=== PATIENT | female | born 1995 | race American Indian/Alaskan Native ===

== ENCOUNTER 2022-04-25 11:45 | Inpatient (IN) | payer MEDICAID ==
[2022-04-25 12:59] LABS: Basophils # (Auto) 0.1 K/mm3 (0.0-0.1); Basophils % (Auto) 0.5 % (0.0-1.8); Hematocrit 51.5 % (30.3-42.9); Hemoglobin 16.5 gm/dl (10.1-14.3); Lymphocytes # (Auto) 1.2 K/mm3 (1.2-5.4); Lymphocytes % (Auto) 12.5 % (13.4-35.0); Mean Corpuscular HGB Conc 32 % (30-34); Mean Corpuscular Volume 85 fl (79-97); Monocytes # (Auto) 0.4 K/mm3 (0.0-0.8); Monocytes % (Auto) 4.1 % (0.0-7.3); Platelet Count 511 K/mm3 (140-440); Red Blood Count 6.04 M/mm3 (3.65-5.03); Red Cell Distribution Width 14.5 % (13.2-15.2)
[2022-04-25 13:14] LABS: Bacteria,Urine 1+ /HPF (Negative); Bilirubin,Urine NEG (Negative); Blood,Urine NEG (Negative); Color,Urine Yellow (Yellow); Mucus,Urine 2+ /HPF; Urobilinogen,Urine < 2.0 mg/dL (<2.0)
[2022-04-25 13:16] LABS: Alanine Aminotransferase 14 units/L (7-56); Albumin 5.6 g/dL (3.9-5); BUN/Creatinine Ratio 20; Blood Urea Nitrogen 22 mg/dL (7-17); Calcium 11.1 mg/dL (8.4-10.2); Hemolysis Index 69
[2022-04-25] MEDS ORDERED: INSULIN REGULAR, HUMAN 100 UNITS in SODIUM CHLORIDE 0.9% 99 ML IV SCH ×2 (14:00→17:00)
[2022-04-25] MEDS ORDERED: SODIUM CHLORIDE 0.9% 1000 ML 1,000 ML IV ONE (14:04)
--- NOTE | 2022-04-25 14:28 | Emergency Department Report ---
ED General Adult HPI - General Chief complaint: Weakness Stated complaint: DIABETES/VOMITING/CONSTIPATION Time Seen by Provider: 04/25/22 13:56 Source: patient Mode of arrival: Ambulatory Limitations: No Limitations - History of Present Illness Initial comments: Patient is 26 years old female with history of type 1 diabetes. Patient presented to the ER complaining of generalized weakness. patient stated that she is compliant with her insulin. Patient also complaining of nausea and vomiting. She denied any cough or shortness of breath. Severity scale (0 -10): 8 - Related Data Allergies Allergy/AdvReac Type Severity Reaction Status Date / Time amoxicillin Allergy Unknown Verified 04/25/22 11:53 ED Review of Systems ROS: Stated complaint: DIABETES/VOMITING/CONSTIPATION Other details as noted in HPI Comment: All other systems reviewed and negative Constitutional: denies: chills, fever Respiratory: denies: cough, shortness of breath, SOB with exertion, SOB at rest, wheezing Cardiovascular: palpitations. denies: chest pain Gastrointestinal: nausea, vomiting. denies: abdominal pain, diarrhea, consti pation, hematemesis, melena Musculoskeletal: denies: back pain Neurological: weakness. denies: headache, numbness, paresthesias, confusion ED Past Medical Hx - Past Medical History Previous Medical History?: Yes Hx Diabetes: Yes - Surgical History Past Surgical History?: No ED Physical Exam - General Limitations: No Limitations General appearance: alert, in no apparent distress - Head Head exam: Present: atraumatic, normocephalic, normal inspection - ENT ENT exam: Present: mucous membranes dry - Neck Neck exam: Present: normal inspection, full ROM. Absent: tenderness, meningismus - Respiratory Respiratory exam: Present: normal lung sounds bilaterally - Cardiovascular Cardiovascular Exam: Present: tachycardia - GI/Abdominal GI/Abdominal exam: Present: soft, normal bowel sounds. Absent: distended, tenderness, guarding, rebound, rigid, organomegaly, mass, bruit, pulsatile mass, hernia - Extremities Exam Extremities exam: Present: normal inspection, full ROM, normal capillary refill. Absent: tenderness, pedal edema, joint swelling, calf tenderness - Back Exam Back exam: Present: normal inspection, full ROM. Absent: CVA tenderness (R), CVA tenderness (L) - Neurological Exam Neurological exam: Present: alert, oriented X3, CN II-XII intact, normal gait, reflexes normal. Absent: motor sensory deficit - Psychiatric Psychiatric exam: Present: normal mood - Skin Skin exam: Present: warm, dry, intact, normal color ED Course Vital Signs 04/25/22 11:54 Temperature 97.8 F Pulse Rate 138 H Respiratory 20 Rate Blood Pressure 126/87 [Right] O2 Sat by Pulse 99 Oximetry ED Medical Decision Making - Lab Data Result diagrams: 04/25/22 12:18 04/25/22 12:18 - Medical Decision Making Patient is 26 years old female with history of type 1 diabetes. Patient presented to the ER complaining of generalized weakness. patient stated that she is compliant with her insulin. Patient also complaining of nausea and v omiting. She denied any cough or shortness of breath. Patient found to have a blood glucose of 526 and anion gap of 36. Patient is in DKA. Patient started on insulin drip and receiving normal saline. I discussed the patient with Dr. Wells, he agreed to admit the patient to medical service for further management. Critical Care Time: Yes Critical care time in (mins) excluding proc time.: 35 Critical care attestation.: If time is entered above; I have spent that time in minutes in the direct care of this critically ill patient, excluding procedure time. ED Disposition Clinical Impression: DKA (diabetic ketoacidosis) Disposition: ADMITTED INPATIENT Is pt being admited?: Yes Condition: Stable Instructions: Diabetic Ketoacidosis (ED)
[2022-04-25 15:36] LABS: BUN/Creatinine Ratio 26; Blood Urea Nitrogen 23 mg/dL (7-17); Calcium 10.3 mg/dL (8.4-10.2); Hemolysis Index 1
--- NOTE | 2022-04-25 15:50 | XRay Report ---
CHEST 1 VIEW INDICATION: chest pain. COMPARISON: None FINDINGS: SUPPORT DEVICES: None. HEART: Within normal limits. LUNGS/PLEURA: No acute air space or interstitial disease. ADDITIONAL FINDINGS: None. IMPRESSION: 1. No acute findings. Signer Name: Deonte Villareal MD Signed: 04/25/2022 3:45 PM Workstation Name: [id number]
[2022-04-25] MEDS ORDERED: ACETAMINOPHEN 325 MG TAB PO PRN (16:12)
[2022-04-25] MEDS ORDERED: ONDANSETRON 4 MG/2 ML INJ IV PRN (16:12)
[2022-04-25] MEDS ORDERED: METOCLOPRAMIDE 10 MG/2 ML INJ IV PRN (16:12)
[2022-04-25] MEDS ORDERED: MORPHINE 2 MG/1 ML INJ IV PRN (16:12)
[2022-04-25] MEDS: D5W/0.45% NACL/KCL 20 MEQ 20 MEQ/1,000 ML BAG IV SCH ×2 (16:33→22:59)
[2022-04-25] MEDS ORDERED: DEXTROSE 50% IN WATER (25GM) 50 ML SYRINGE IV ONE (17:09)
[2022-04-25 18:04] LABS: BUN/Creatinine Ratio 25; Blood Urea Nitrogen 20 mg/dL (7-17); Calcium 9.6 mg/dL (8.4-10.2); Hemolysis Index 8
[2022-04-25 22:14] LABS: Blood Urea Nitrogen 17 mg/dL (7-17); Hemolysis Index 79
[2022-04-25 22:22] LABS: BUN/Creatinine Ratio 34
[2022-04-25] MEDS: POTASSIUM CHLORIDE 10 MEQ 10 MEQ/100 ML BAG IV SCH ×2 (22:47→22:48)
[2022-04-25] MEDS: INSULIN LISPRO 100 UNIT/ML SUB-Q SCH (22:59)
[2022-04-25] MEDS: FAMOTIDINE 20 MG/2 ML INJ IV SCH (22:59)
[2022-04-25 23:34] LABS: Blood Urea Nitrogen 16 mg/dL (7-17); Calcium 9.1 mg/dL (8.4-10.2); Hemolysis Index 5
[2022-04-25 23:35] LABS: BUN/Creatinine Ratio 27
[2022-04-26] MEDS: INSULIN LISPRO 100 UNIT/ML SUB-Q SCH ×4 (00:36→22:50)
[2022-04-26] MEDS: D5W/0.45% NACL/KCL 20 MEQ 20 MEQ/1,000 ML BAG IV SCH (06:44)
--- NOTE | 2022-04-26 07:28 | History and Physical Report ---
History of Present Illness Date of examination: 04/25/22 Date of admission: 04/25/22 16:13 Chief complaint: Nausea and vomiting for 1 day History of present illness: Patient is 26 years old female with history of type 1 diabetes. Patient presented to the ER complaining of generalized weakness. patient stated that she is compliant with her insulin. Patient also complaining of nausea and vomiting. She denied any cough or shortness of breath. Severity scale (0 -10): 8 - Past Medical History Previous Medical History?: Yes --Diabetes: Yes - Surgical History --Past Surgical History?: No Review of Systems ROS: Stated complaint: DIABETES/VOMITING/CONSTIPATION Other details as noted in HPI Comment: All other systems reviewed and negative Constitutional: denies: chills, fever Respiratory: denies: cough, shortness of breath, SOB with exertion, SOB at rest, wheezing Cardiovascular: palpitations. denies: chest pain Gastrointestinal: nausea, vomiting. denies: abdominal pain, diarrhea, constipation, hematemesis, melena Musculoskeletal: denies: back pain Neurological: weakness. denies: headache, numbness, paresthesias, confusion Medications and Allergies Allergies Allergy/AdvReac Type Severity Reaction Status Date / Time amoxicillin Allergy Unknown Verified 04/25/22 11:53 Active Meds: Active Medications Acetaminophen (Acetaminophen 325 Mg Tab) 650 mg PO Q4H PRN PRN Reason: Pain MILD(1-3)/Fever >100.5/CAMACHO Last Admin: 04/25/22 23:10 Dose: 650 mg Famotidine (Famotidine 20 Mg/2 Ml Inj) 20 mg IV BID ROSALVA Last Admin: 04/25/22 22:59 Dose: 20 mg Potassium Chloride/Dextrose/Sod Cl (D5w/0.45% Nacl/Kcl 20 Meq) 20 meq in 1,000 mls @ 150 mls/hr IV DIRECT ROSALVA Last Admin: 04/26/22 06:44 Dose: 150 mls/hr Insulin Human Lispro (Insulin Lispro 100 Unit/Ml) 0 unit SUB-Q Q3H ROSALVA; Protocol Last Admin: 04/26/22 00:36 Dose: 6 unit Metoclopramide HCl (Metoclopramide 10 Mg/2 Ml Inj) 10 mg IV Q6H PRN PRN Reason: Nausea And Vomiting Morphine Sulfate (Morphine 2 Mg/1 Ml Inj) 2 mg IV Q4H PRN PRN Reason: Pain, Moderate (4-6) Ondansetron HCl (Ondansetron 4 Mg/2 Ml Inj) 4 mg IV Q8H PRN PRN Reason: Nausea And Vomiting Sodium Chloride (Sodium Chloride 0.9% 10 Ml Flush Syringe) 10 ml IV BID ROSALVA Last Admin: 04/25/22 23:00 Dose: 10 ml Sodium Chloride (Sodium Chloride 0.9% 10 Ml Flush Syringe) 10 ml IV PRN PRN PRN Reason: LINE FLUSH Exam - Constitutional Vitals: Temp Pulse Resp BP Pulse Ox 99.8 F H 94 H 16 129/94 96 04/26/22 03:25 04/26/22 04:34 04/26/22 04:34 04/26/22 04:34 04/26/22 04:34 General appearance: Present: no acute distress, well-nourished - EENT Eyes: Present: PERRL ENT: hearing intact, clear oral mucosa - Neck Neck: Present: supple, normal ROM - Respiratory Respiratory effort: normal Respiratory: bilateral: CTA - Cardiovascular Heart rate: 78 Rhythm: regular Heart Sounds: Present: S1 & S2. Absent: rub, click - Extremities Extremities: pulses symmetrical, No edema Peripheral Pulses: within normal limits - Abdominal General gastrointestinal: Present: soft, non-tender, non-distended, normal bowel sounds Female genitourinary: Present: normal - Integumentary Integumentary: Present: clear, warm, dry - Musculoskeletal Musculoskeletal: gait normal, strength equal bilaterally - Psychiatric Psychiatric: appropriate mood/affect, intact judgment & insight - Neurologic Neurologic: CNII-XII intact, moves all extremities Results - Labs CBC & Chem 7: 04/25/22 12:18 04/25/22 22:32 Labs: Laboratory Last Values WBC 9.5 K/mm3 (4.5-11.0) 04/25/22 12:18 RBC 6.04 M/mm3 (3.65-5.03) H 04/25/22 12:18 Hgb 16.5 gm/dl (10.1-14.3) H 04/25/22 12:18 Hct 51.5 % (30.3-42.9) H 04/25/22 12:18 MCV 85 fl (79-97) 04/25/22 12:18 MCH 27 pg (28-32) L 04/25/22 12:18 MCHC 32 % (30-34) 04/25/22 12:18 RDW 14.5 % (13.2-15.2) 04/25/22 12:18 Plt Count 511 K/mm3 (140-440) H 04/25/22 12:18 Lymph % (Auto) 12.5 % (13.4-35.0) L 04/25/22 12:18 [place] % (Auto) 4.1 % (0.0-7.3) 04/25/22 12:18 Eos % (Auto) 0.0 % (0.0-4.3) 04/25/22 12:18 Baso % (Auto) 0.5 % (0.0-1.8) 04/25/22 12:18 Lymph # (Auto) 1.2 K/mm3 (1.2-5.4) 04/25/22 12:18 [place] # (Auto) 0.4 K/mm3 (0.0-0.8) 04/25/22 12:18 Eos # (Auto) 0.0 K/mm3 (0.0-0.4) 04/25/22 12:18 Baso # (Auto) 0.1 K/mm3 (0.0-0.1) 04/25/22 12:18 Seg Neutrophils % 82.9 % (40.0-70.0) H 04/25/22 12:18 Seg Neutrophils # 7.9 K/mm3 (1.8-7.7) H 04/25/22 12:18 Sodium 128 mmol/L (137-145) L 04/25/22 22:32 Potassium 3.5 mmol/L (3.6-5.0) L 04/25/22 22:32 Chloride 81.5 mmol/L (98-107) L 04/25/22 22:32 Carbon Dioxide 25 mmol/L (22-30) 04/25/22 22:32 Anion Gap 25 mmol/L 04/25/22 22:32 BUN 16 mg/dL (7-17) 04/25/22 22:32 Creatinine 0.6 mg/dL (0.6-1.2) 04/25/22 22:32 Estimated GFR > 60 ml/min 04/25/22 22:32 BUN/Creatinine Ratio 27 % 04/25/22 22:32 Glucose 340 mg/dL (65-100) H 04/25/22 22:32 POC Glucose 100 mg/dL (70-105) 04/26/22 05:57 Calcium 9.1 mg/dL (8.4-10.2) 04/25/22 22:32 Phosphorus 3.90 mg/dL (2.5-4.5) 04/25/22 16:44 Magnesium 2.60 mg/dL (1.7-2.3) H 04/25/22 16:44 Total Bilirubin 0.60 mg/dL (0.1-1.2) 04/25/22 12:18 AST 20 units/L (5-40) 04/25/22 12:18 ALT 14 units/L (7-56) 04/25/22 12:18 Alkaline Phosphatase 148 units/L (35-129) H 04/25/22 12:18 Total Protein 9.8 g/dL (6.3-8.2) H 04/25/22 12:18 Albumin 5.6 g/dL (3.9-5) H 04/25/22 12:18 Albumin/Globulin Ratio 1.3 % 04/25/22 12:18 HCG, Qual Negative (Negative) 04/25/22 14:20 Urine Color Yellow (Yellow) 04/25/22 Unknown Urine Turbidity Slightly-cloudy (Clear) 04/25/22 Unknown Urine pH 5.0 (5.0-7.0) 04/25/22 Unknown Ur Specific [place] 1.025 (1.003-1.030) 04/25/22 Unknown Urine Protein 100 mg/dl mg/dL (Negative) 04/25/22 Unknown Urine Glucose (UA) >=500 mg/dL (Negative) 04/25/22 Unknown Urine Ketones 80 mg/dL (Negative) 04/25/22 Unknown Urine Blood Neg (Negative) 04/25/22 Unknown Urine Nitrite Neg (Negative) 04/25/22 Unknown Urine Bilirubin Neg (Negative) 04/25/22 Unknown Urine Urobilinogen < 2.0 mg/dL (<2.0) 04/25/22 Unknown Ur Leukocyte Esterase Neg (Negative) 04/25/22 Unknown Urine WBC (Auto) 24.0 /HPF (0.0-6.0) H 04/25/22 Unknown Urine RBC (Auto) 4.0 /HPF (0.0-6.0) 04/25/22 Unknown U Epithel Cells (Auto) 18.0 /HPF (0-13.0) H 04/25/22 Unknown Urine Bacteria (Auto) 1+ /HPF (Negative) 04/25/22 Unknown Urine Mucus 2+ /HPF 04/25/22 Unknown Short CBC 04/25/22 Range/Units 12:18 WBC 9.5 (4.5-11.0) K/mm3 Hgb 16.5 H (10.1-14.3) gm/dl Hct 51.5 H (30.3-42.9) % Plt Count 511 H (140-440) K/mm3 BMP 04/25/22 04/25/22 04/25/22 12:18 14:20 16:44 Sodium 132 L 132 L 135 L Potassium 5.0 3.0 L D 3.0 L Chloride 73.0 L 79.0 L 86.0 L Carbon Dioxide 28 31 H 30 BUN 22 H 23 H 20 H Creatinine 1.1 0.9 0.8 Glucose 527 H* 259 H 55 L Calcium 11.1 H 10.3 H 9.6 04/25/22 04/25/22 20:32 22:32 Sodium 127 L D 128 L Potassium 4.0 D 3.5 L Chloride 81.4 L 81.5 L Carbon Dioxide 21 L D 25 BUN 17 16 Creatinine 0.5 L 0.6 Glucose 280 H 340 H Calcium 9.0 9.1 Liver Function 04/25/22 Range/Units 12:18 Total Bilirubin 0.60 (0.1-1.2) mg/dL AST 20 (5-40) units/L ALT 14 (7-56) units/L Alkaline Phosphatase 148 H (35-129) units/L Albumin 5.6 H (3.9-5) g/dL Urine 04/25/22 Range/Units Unknown Urine Color Yellow (Yellow) Urine pH 5.0 (5.0-7.0) Ur Specific [place] 1.025 (1.003-1.030) Urine Protein 100 mg/dl (Negative) mg/dL Urine Glucose (UA) >=500 (Negative) mg/dL Chav[place]ria/IV: Voiding Method Toilet Assessment and Plan Assessment and plan: Critical care statement The high probability OF a clinically significant sudden or life-threatening deterioration of the cardiorespiratory system and endocrine system required my full and direct attention, intervention and postoperative management. The aggregate critical care time was 40 minutes. The time is in addition to time spent performing reported procedures but includes the followin: Data review and interpretation 2: Patient assessment and monitoring of vital signs 3: Documentation 4:: Medication orders and management Advance Directives: Yes (Full code) VTE prophylaxis?: Chemical Plan of care discussed with patient/family: Yes - Patient Problems (1) DKA (diabetic ketoacidosis) Current Visit: Yes Status: Acute Qualifiers: Diabetes mellitus type: type 1 Plan to address problem: DKA protocol was initiated Patient was initiated on IV insulin IV fluids Banquet Set Up Person consult (2) Dehydration Current Visit: Yes Status: Acute Plan to address problem: IV fluids for now (3) DVT prophylaxis Current Visit: Yes Status: Acute Plan to address problem: On anticoagulation GI prophylaxis (4) Advance care planning Current Visit: Yes Status: Acute Plan to address problem: Disease education conducted, care plan discussed, diagnosis discussed, prognosis discussed. Patient is full code. Patient acknowledges understanding and agreement with care plan. +30 minutes.
--- NOTE | 2022-04-26 07:30 | Event Note ---
Date: 04/25/22 Patient was downgraded from ICU to telemetry floor because her sugars were in the 60s and patient was doing well Patient was initiated on frequent Accu-Cheks and high-dose sliding scale protocol Patient also initiated on Lantus We will defer to primary team dosing to follow 7030 twice daily or long-acting insulin with short acting insulin before each meal
[2022-04-26] MEDS: FAMOTIDINE 20 MG/2 ML INJ IV SCH (09:49)
--- NOTE | 2022-04-26 11:55 | Progress Note ---
Assessment and Plan Assessment and plan: #DKA (diabetic ketoacidosis)-resolved #Type 1 diabetes with hyperglycemia -resolved prior to insulin drip -will start lantus 10U QHS -continue high scale SSI + accuchecks -continue IVFs #Dehydration improving -IV fluids for now #Abdominal pain #Abdominal distention -Chronic -Given patient history likely secondary to undiagnosed gastroparesis -Will schedule Reglan and see if improved -CT abdomen without contrast ordered -will need outpatient follow up with GI to rule out gastroparesis #Hypokalemia -We will replete monitor -Likely secondary to vomiting #Advanced care planning -Disease education conducted, care plan discussed, diagnosis discussed, prognosis discussed. Patient is full code. Patient acknowledges understanding and agreement with care plan. +30 minutes. History Interval history: No acute events overnight. Patient reports early satiety, nausea and vomiting for a while. She has not had a full meal since last Tuesday due to her symptoms. Currently she is symptom-free and eager to eat. She reports taking treciba at night and has noticed fluctuations in her blood sugars. She is visiting her sister from [place]. Hospitalist Physical - Physical exam Narrative exam: GENERAL:Thin young woman. In no acute distress. HEENT: Normocephalic. Atraumatic. NECK: Supple. CHEST/LUNGS: CTAB on room air HEART/CARDIOVASCULAR: RRR. No murmur, rubs or gallops appreciated. ABDOMEN: +BS. NT/ND. SKIN: No rashes noted. NEURO: No focal motor deficit. Follows all commands. MUSCULOSKELETAL: No joint effusion EXTREMITIES: No cyanosis, clubbing or edema. PSYCH: Cooperative. - Constitutional Vitals: Temp Pulse Resp BP Pulse Ox 98.0 F 92 H 16 129/83 98 04/26/22 07:58 04/26/22 07:58 04/26/22 07:58 04/26/22 07:58 04/26/22 07:58 General appearance: Present: no acute distress, well-nourished Results - Labs CBC & Chem 7: 04/25/22 12:18 04/27/22 04:03 Labs: Laboratory Last Values WBC 9.5 K/mm3 (4.5-11.0) 04/25/22 12:18 RBC 6.04 M/mm3 (3.65-5.03) H 04/25/22 12:18 Hgb 16.5 gm/dl (10.1-14.3) H 04/25/22 12:18 Hct 51.5 % (30.3-42.9) H 04/25/22 12:18 MCV 85 fl (79-97) 04/25/22 12:18 MCH 27 pg (28-32) L 04/25/22 12:18 MCHC 32 % (30-34) 04/25/22 12:18 RDW 14.5 % (13.2-15.2) 04/25/22 12:18 Plt Count 511 K/mm3 (140-440) H 04/25/22 12:18 Lymph % (Auto) 12.5 % (13.4-35.0) L 04/25/22 12:18 [place] % (Auto) 4.1 % (0.0-7.3) 04/25/22 12:18 Eos % (Auto) 0.0 % (0.0-4.3) 04/25/22 12:18 Baso % (Auto) 0.5 % (0.0-1.8) 04/25/22 12:18 Lymph # (Auto) 1.2 K/mm3 (1.2-5.4) 04/25/22 12:18 [place] # (Auto) 0.4 K/mm3 (0.0-0.8) 04/25/22 12:18 Eos # (Auto) 0.0 K/mm3 (0.0-0.4) 04/25/22 12:18 Baso # (Auto) 0.1 K/mm3 (0.0-0.1) 04/25/22 12:18 Seg Neutrophils % 82.9 % (40.0-70.0) H 04/25/22 12:18 Seg Neutrophils # 7.9 K/mm3 (1.8-7.7) H 04/25/22 12:18 Sodium 128 mmol/L (137-145) L 04/25/22 22:32 Potassium 3.5 mmol/L (3.6-5.0) L 04/25/22 22:32 Chloride 81.5 mmol/L (98-107) L 04/25/22 22:32 Carbon Dioxide 25 mmol/L (22-30) 04/25/22 22:32 Anion Gap 25 mmol/L 04/25/22 22:32 BUN 16 mg/dL (7-17) 04/25/22 22:32 Creatinine 0.6 mg/dL (0.6-1.2) 04/25/22 22:32 Estimated GFR > 60 ml/min 04/25/22 22:32 BUN/Creatinine Ratio 27 % 04/25/22 22:32 Glucose 340 mg/dL (65-100) H 04/25/22 22:32 POC Glucose 263 mg/dL (70-105) H 04/26/22 09:34 Calcium 9.1 mg/dL (8.4-10.2) 04/25/22 22:32 Phosphorus 3.90 mg/dL (2.5-4.5) 04/25/22 16:44 Magnesium 2.60 mg/dL (1.7-2.3) H 04/25/22 16:44 Total Bilirubin 0.60 mg/dL (0.1-1.2) 04/25/22 12:18 AST 20 units/L (5-40) 04/25/22 12:18 ALT 14 units/L (7-56) 04/25/22 12:18 Alkaline Phosphatase 148 units/L (35-129) H 04/25/22 12:18 Total Protein 9.8 g/dL (6.3-8.2) H 04/25/22 12:18 Albumin 5.6 g/dL (3.9-5) H 04/25/22 12:18 Albumin/Globulin Ratio 1.3 % 04/25/22 12:18 HCG, Qual Negative (Negative) 04/25/22 14:20 Urine Color Yellow (Yellow) 04/25/22 Unknown Urine Turbidity Slightly-cloudy (Clear) 04/25/22 Unknown Urine pH 5.0 (5.0-7.0) 04/25/22 Unknown Ur Specific [place] 1.025 (1.003-1.030) 04/25/22 Unknown Urine Protein 100 mg/dl mg/dL (Negative) 04/25/22 Unknown Urine Glucose (UA) >=500 mg/dL (Negative) 04/25/22 Unknown Urine Ketones 80 mg/dL (Negative) 04/25/22 Unknown Urine Blood Neg (Negative) 04/25/22 Unknown Urine Nitrite Neg (Negative) 04/25/22 Unknown Urine Bilirubin Neg (Negative) 04/25/22 Unknown Urine Urobilinogen < 2.0 mg/dL (<2.0) 04/25/22 Unknown Ur Leukocyte Esterase Neg (Negative) 04/25/22 Unknown Urine WBC (Auto) 24.0 /HPF (0.0-6.0) H 04/25/22 Unknown Urine RBC (Auto) 4.0 /HPF (0.0-6.0) 04/25/22 Unknown U Epithel Cells (Auto) 18.0 /HPF (0-13.0) H 04/25/22 Unknown Urine Bacteria (Auto) 1+ /HPF (Negative) 04/25/22 Unknown Urine Mucus 2+ /HPF 04/25/22 Unknown Chavarria/IV: Voiding Method Toilet Active Medications - Current Medications Current Medications: Generic Name Dose Route Start Last Admin Trade Name Freq PRN Reason Stop Dose Admin Acetaminophen 650 mg 04/25/22 16:12 04/25/22 23:10 Acetaminophen 325 Mg Tab PO 650 mg Q4H PRN Administration Pain MILD(1-3)/Fever >100.5/CAMACHO Famotidine 20 mg 04/25/22 22:00 04/26/22 09:49 Famotidine 20 Mg/2 Ml Inj IV 20 mg BID ROSALVA Administration Potassium Chloride/Dextrose/Sod Cl 20 meq in 1,000 mls @ 150 mls/hr 04/25/22 17:00 04/26/22 06:44 D5w/0.45% Nacl/Kcl 20 Meq IV 150 mls/hr DIRECT ROSALVA Administration Insulin Human Lispro 0 unit 04/25/22 21:00 04/26/22 09:53 Insulin Lispro 100 Unit/Ml SUB-Q 6 unit Q3H ROSALVA Administration Protocol Metoclopramide HCl 10 mg 04/25/22 16:12 Metoclopramide 10 Mg/2 Ml Inj IV Q6H PRN Nausea And Vomiting Metoclopramide HCl 5 mg 04/26/22 16:30 Metoclopramide 10 Mg/2 Ml Inj IV ACHS ROSALVA Morphine Sulfate 2 mg 04/25/22 16:12 Morphine 2 Mg/1 Ml Inj IV Q4H PRN Pain, Moderate (4-6) Ondansetron HCl 4 mg 04/25/22 16:12 Ondansetron 4 Mg/2 Ml Inj IV Q8H PRN Nausea And Vomiting Sodium Chloride 10 ml 04/25/22 22:00 04/25/22 23:00 Sodium Chloride 0.9% 10 Ml Flush Syringe IV 10 ml BID ROSALVA Administration Sodium Chloride 10 ml 04/25/22 16:12 Sodium Chloride 0.9% 10 Ml Flush Syringe IV PRN PRN LINE FLUSH Nutrition/Malnutrition Assess - Dietary Evaluation Nutrition/Malnutrition Findings: Nutrition Notes Start: 04/25/22 16:47 Freq: Status: Active Protocol: Document 04/25/22 16:47 MANDY (Rec: 04/25/22 16:54 MANDY [id number]) Nutrition Notes Need for Assessment generated from: MD Order,Education Initial or Follow up Brief Note Current Diagnosis Diabetes Other Pertinent Diagnosis DKA, Weakness, N/V. Current Diet NPO (since 04/25 16:15). Height 5 ft 3 in Weight 47.627 kg [place] Body Weight (kg) 52.27 BMI 18.6 Weight change and time frame None provided at admission. Weight Status Appropriate Subjective/Other Information RD consult for nutrition education assessment. Pt currently on NPO. Pt is on Room Air, O2 saturation @ 99%, according to Vital Signs notes. Pt still in critical condition , not a candidate for Nutrition Education at the time, will assess feasibility on F/U. Percent of energy/protein needs met: Pt currently on NPO. Nutrition Intervention Follow-Up By: 04/27/22 Additional Comments Nutrition education will be provided on F/U, if feasible. When pertinent, start monitoring food tolerance, %PO intake of meals, and BM.
[2022-04-26 12:13] LABS: Blood Urea Nitrogen 12 mg/dL (7-17); Calcium 8.8 mg/dL (8.4-10.2); Hemolysis Index 3
[2022-04-26 12:31] LABS: BUN/Creatinine Ratio 17
--- NOTE | 2022-04-26 17:39 | Cat Scan Report ---
CT ABDOMEN AND PELVIS WITHOUT CONTRAST HISTORY: abdominal pain/distention COMPARISON: None TECHNIQUE: Routine abdominal and pelvic CT exam performed without contrast. Lack of intravenous cont rast limits evaluation of the vascular and solid organs.. All CT scans at this location are performed using CT dose reduction for ALARA by means of automated exposure control. FINDINGS: CT ABDOMEN: Lung Bases: No significant abnormality. Liver: No significant abnormality. Biliary: No significant abnormality. Spleen: No significant abnormality. Unenlarged. Pancreas: No significant abnormality. Adrenals: No significant abnormality. Kidneys: No significant abnormality. Lymphatics: No lymphadenopathy. Vasculature: No significant abnormality. Bowel/Peritoneum: There is significant distention of the stomach. There is no free air. There is no b owel obstruction. There are no fluid collections. CT PELVIC: : No significant abnormality. Lymphatics: No lymphadenopathy. Osseous Structures: No aggressive appearing osseous lesions. Additional Findings: None IMPRESSION: 1. Significant distention of the stomach which may indicate gastric outlet obstruction. No bowel obst ruction. No free air or fluid collection. Signer Name: Delonte Murray MD Signed: 04/26/2022 5:35 PM Workstation Name: [id number]
[2022-04-26] MEDS ORDERED: INSULIN GLARGINE 100 UNITS/ML SUB-Q SCH ×2 (22:00)
[2022-04-26] MEDS: FAMOTIDINE 20 MG TAB PO SCH (22:51)
[2022-04-26] MEDS: METOCLOPRAMIDE 10 MG/2 ML INJ IV SCH (22:57)
[2022-04-27 05:22] LABS: Blood Urea Nitrogen 15 mg/dL (7-17); Hemolysis Index 1
[2022-04-27 05:24] LABS: BUN/Creatinine Ratio 30
[2022-04-27] MEDS: METOCLOPRAMIDE 10 MG/2 ML INJ IV SCH ×3 (06:47→10:43)
[2022-04-27] MEDS: INSULIN LISPRO 100 UNIT/ML SUB-Q SCH ×2 (07:34→07:35)
[2022-04-27] MEDS: FAMOTIDINE 20 MG/2 ML INJ IV SCH (07:35)
[2022-04-27 08:04] VITALS: BP 124/80
[2022-04-27] MEDS ORDERED: POTASSIUM CHLORIDE ER 20 MEQ TAB PO SCH (09:00)
--- NOTE | 2022-04-27 10:26 | Discharge Summary ---
Providers - Providers Date of Admission: 04/25/22 16:13 Date of discharge: 04/27/22 Attending physician: RITA DURAN MD 04/25/22 16:18 Consult to Dietitian/Nutrition [CONS] Routine Physician Instructions: Diet education Reason For Exam: DKA Reason for Consult: Nutrition Recommendations Reason for Consult: Diet education Primary care physician: SENIOR JAVA DEVELOPER Hospitalization Reason for admission: DKA Condition: Stable Hospital course: 26-year-old female history of type 1 diabetes who presented with nausea, vomiting and generalized weakness. Patient was found to be in diabetic ketoacidosis. Anion gap closed after being administered subcutaneous insulin. Her symptoms improved and she was able to tolerate food. CT of the abdomen pelvis showed distention of the stomach without bowel obstruction. Patient was discharged with instruction to follow-up with PCP and gastroenterology outpatient. Disposition: 01 HOME / SELF CARE / HOMELESS Final Discharge Diagnosis (Prints w/discharge instructions): Dehydration. Diabetic ketoacidosis. Type 1 diabetes with hyperglycemia. Abdominal pain. Abdominal distention. Hypokalemia Time spent for discharge: 30 minutes Core Measure Documentation - Palliative Care Palliative Care/ Comfort Measures: Not Applicable - Core Measures Any of the following diagnoses?: none Exam - Physical Exam Narrative exam: GENERAL:Thin young woman. In no acute distress. HEENT: Normocephalic. Atraumatic. NECK: Supple. CHEST/LUNGS: CTAB on room air HEART/CARDIOVASCULAR: RRR. No murmur, rubs or gallops appreciated. ABDOMEN: +BS. NT/ND. SKIN: No rashes noted. NEURO: No focal motor deficit. Follows all commands. MUSCULOSKELETAL: No joint effusion EXTREMITIES: No cyanosis, clubbing or edema. PSYCH: Cooperative. - Constitutional Vitals: Temp Pulse Resp BP Pulse Ox 98.4 F 88 20 124/80 98 04/27/22 07:21 04/27/22 07:21 04/27/22 04:15 04/27/22 07:21 04/27/22 08:15 Plan Care Plan Goals: Please make an appoint with your primary care provider for referral to gastroenterology for evaluation of your distended stomach. Continue to take medications as they are prescribed to you. Should your symptoms return please report to the nearest ED. Follow up with: TOBI MUNSON MD [Primary Care Provider] - 7 Days Prescriptions: Metoclopramide HCl [Metoclopramide HCl Odt] 5 mg PO TIDWM 14 Days #42 tab
[2022-04-27] MEDS: FAMOTIDINE 20 MG TAB PO SCH (10:43)
--- NOTE | 2022-04-29 11:41 | Electrocardiograph Report ---
[facility] Test Date: 2022-04-25 Test Time: 15:01:20 Pat Name: ERIC JAIMES Department: Room: A459 Gender: F Title Camera Operator: JEAN : 1995 Requested By: GABRIELLE STARR Order Number: [id number] Reading MD: Med Thomson Measurements Intervals [place] Rate: 121 P: 55 MI: 108 QRS: 66 QRSD: 67 T: -22 QT: 379 QTc: 538 Interpretive Statements Sinus tachycardia Prolonged QT interval No previous ECG available for comparison Electronically Signed On 04-29-2022 11:40:54 EDT by Med Thomson
== END 2022-04-27 12:05 | disposition home or self-care (01) | DRG 639 ==
LOC: ED 11:45 → CC1 16:13 → 4A 20:13
PROVIDERS: ADMIT Internal Medicine; ATTEND Student in an Organized Health Care Education/Training Program
DX: E10.10 Type 1 diabetes mellitus with ketoacidosis without coma (principal); E86.0 Dehydration; E87.6 Hypokalemia; R14.0 Abdominal distension (gaseous)
CPT/HCPCS: 36415; 71045; 74176; 80048; 80053; 81001; 82962; 83735; 84100; 84703; 85025; 87086; 93005; G0378; J3480; J3490; Q9967; J1815; J2765; J7030

== ENCOUNTER 2022-05-07 21:13 | Inpatient (IN) | payer SELFPAY ==
[2022-05-07] MEDS ORDERED: SODIUM CHLORIDE 0.9% 1000 ML 1,000 ML IV ONE ×3 (21:39→22:58)
--- NOTE | 2022-05-07 21:44 | Emergency Department Report ---
ED Altered Mental Status HPI - General Stated Complaint: DIABETIC ISSUES Time Seen by Provider: 05/07/22 21:39 Source: EMS Mode of arrival: Stretcher Limitations: Altered Mental Status - History of Present Illness Initial Comments: Patient is a 26-year-old female brought in by EMS for altered mental status. She has history of insulin-dependent diabetes. She is visiting from out of town for a wedding and has been here for approximately 1 week. She apparently became altered at someone's house and EMS was called. Fingerstick read critical high. Greater than 600 during triage. - Related Data Home Medications Medication Instructions Recorded Confirmed Last Taken Dicyclomine [Bentyl] 10 mg PO QID 04/27/22 04/27/22 Unknown Insulin Degludec [Tresiba 200 unit SQ QDAY 04/27/22 04/27/22 Unknown Flextouch U-200] Previous Rx's Medication Instructions Recorded Last Taken Type Metoclopramide HCl [Metoclopramide 5 mg PO TIDWM 14 Days #42 tab 04/27/22 Unknown Rx HCl Odt] Allergies Allergy/AdvReac Type Severity Reaction Status Date / Time amoxicillin Allergy Unknown Verified 04/25/22 11:53 ED Review of Systems ROS: Stated complaint: DIABETIC ISSUES Other details as noted in HPI Comment: Unobtainable due to pts medical conditions ED Past Medical Hx - Past Medical History Hx Congestive Heart Failure: No Hx Diabetes: Yes Hx Asthma: No Hx COPD: No - Social History Smoking Status: Never Smoker - Medications Home Medications: Home Medications Medication Instructions Recorded Confirmed Last Taken Type Dicyclomine [Bentyl] 10 mg PO QID 04/27/22 04/27/22 Unknown History Insulin Degludec [Tresiba 200 unit SQ QDAY 04/27/22 04/27/22 Unknown History Flextouch U-200] Metoclopramide HCl [Metoclopramide 5 mg PO TIDWM 14 Days #42 tab 04/27/22 Unk nown Rx HCl Odt] ED Physical Exam - General Limitations: Altered Mental Status General appearance: other (Patient altered) - Head Head exam: Present: atraumatic, normocephalic - Eye Eye exam: Present: normal appearance, PERRL - Neck Neck exam: Present: normal inspection - Respiratory Respiratory exam: Present: other (Kussmaul's respirations) - Cardiovascular Cardiovascular Exam: Present: normal rhythm, tachycardia, normal heart sounds - GI/Abdominal GI/Abdominal exam: Present: soft. Absent: distended - Rectal Rectal exam: Present: deferred - Neurological Exam Neurological exam: Present: altered - Skin Skin exam: Present: warm, dry, intact, normal color ED Course Vital Signs 05/07/22 05/07/22 21:41 22:32 Pulse Rate 122 H 24 L Respiratory 22 24 Rate Blood Pressure 105/59 115/69 [Left] O2 Sat by Pulse 100 98 Oximetry - Lab Data Result diagrams: 05/07/22 21:30 05/07/22 21:30 Lab Results 05/07/22 05/07/22 05/07/22 Range/Units 21:30 21:30 21:30 WBC 21.6 H (4.5-11.0) K/mm3 RBC 5.46 H (3.65-5.03) M/mm3 Hgb 14.9 H (10.1-14.3) gm/dl Hct 51.9 H (30.3-42.9) % MCV 95 (79-97) fl MCH 27 L (28-32) pg MCHC 29 L (30-34) % RDW 15.9 H (13.2-15.2) % Plt Count 415 (140-440) K/mm3 Seg Neutrophils % Car Tracer Sodium 131 L (137-145) mmol/L Potassium 4.3 (3.6-5.0) mmol/L Chloride 61.6 L (98-107) mmol/L Carbon Dioxide 4 L* (22-30) mmol/L Anion Gap 70 mmol/L BUN 31 H (7-17) mg/dL Creatinine 1.9 H (0.6-1.2) mg/dL Estimated GFR 39 ml/min BUN/Creatinine Ratio 16 % Glucose 1056 H* (65-100) mg/dL Calcium 10.5 H (8.4-10.2) mg/dL Total Bilirubin 0.30 (0.1-1.2) mg/dL Direct Bilirubin < 0.2 (0-0.2) mg/dL Indirect Bilirubin 0.1 mg/dL AST 12 (5-40) units/L ALT 16 (7-56) units/L Alkaline Phosphatase 143 H (35-129) units/L Total Protein 9.0 H (6.3-8.2) g/dL Albumin 5.3 H (3.9-5) g/dL Albumin/Globulin Ratio 1.4 % HCG, Qual Negative (Negative) - Radiology Data Radiology results: report reviewed No acute findings on chest x-ray. - Medical Decision Making Laboratory evaluation reveals CO2 of 4, anion gap of 70, glucose of 1056 consistent with DKA. Patient started on IV fluids, insulin infusion and given sodium bicarb. Discussed with document photographer who will consult. Will admit to ICU. Critical Care Time: Yes Critical care time in (mins) excluding proc time.: 60 Critical care attestation.: If time is entered above; I have spent that time in minutes in the direct care of this critically ill patient, excluding procedure time. ED Disposition Clinical Impression: DKA (diabetic ketoacidosis) Disposition: 09 ADMITTED INPATIENT Is pt being admited?: Yes Condition: Fair Instructions: Diabetic Ketoacidosis (ED)
[2022-05-07 21:47] LABS: Mean Corpuscular HGB Conc 29 % (30-34); Mean Corpuscular Volume 95 fl (79-97); Platelet Count 415 K/mm3 (140-440); Red Blood Count 5.46 M/mm3 (3.65-5.03); Red Cell Distribution Width 15.9 % (13.2-15.2)
[2022-05-07 21:52] LABS: Hematocrit 51.9 % (30.3-42.9); Hemoglobin 14.9 gm/dl (10.1-14.3)
[2022-05-07 22:12] LABS: Alanine Aminotransferase 16 units/L (7-56); Albumin 5.3 g/dL (3.9-5); BUN/Creatinine Ratio 16; Blood Urea Nitrogen 31 mg/dL (7-17); Calcium 10.5 mg/dL (8.4-10.2); Hemolysis Index 12
--- NOTE | 2022-05-07 22:41 | XRay Report ---
CHEST 1 VIEW INDICATION / CLINICAL INFORMATION: DKA. COMPARISON: None available. FINDINGS: SUPPORT DEVICES: None. HEART / MEDIASTINUM: Heart size is within normal limits. Mediastinal contour demonstrates no signific ant abnormality. LUNGS / PLEURA: No significant pulmonary abnormality. BONES: No significant osseous abnormality. ADDITIONAL FINDINGS: No significant additional findings. IMPRESSION: 1. No active cardiopulmonary disease. Signer Name: Osmin Andrews II, MD Signed: 05/07/2022 10:37 PM Workstation Name: [id number]
[2022-05-07 22:42] LABS: Bilirubin,Direct < 0.2 mg/dL (0-0.2)
[2022-05-07] MEDS ORDERED: SODIUM BICARB 8.4% 50 MEQ/50 ML SYRINGE IV ONE (22:57)
[2022-05-07] MEDS ORDERED: INSULIN REGULAR, HUMAN 100 UNITS/1 ML IV ONE (22:57)
[2022-05-07] MEDS ORDERED: DEXTROSE 50% IN WATER (25GM) 50 ML SYRINGE IV PRN (22:58)
[2022-05-07] MEDS ORDERED: POTASSIUM CHLORIDE 20 MEQ 20 MEQ/100 ML BAG IV SCH ×2 (23:00)
[2022-05-07] MEDS: D5W/0.45% NACL/KCL 20 MEQ 20 MEQ/1,000 ML BAG IV SCH (23:32)
[2022-05-07 23:39] LABS: Calcium 8.5 mg/dL (8.4-10.2)
[2022-05-07] MEDS ORDERED: POTASSIUM CHLORIDE 10 MEQ 10 MEQ/100 ML BAG IV SCH (23:45)
[2022-05-08] MEDS: INSULIN REGULAR, HUMAN 100 UNITS in SODIUM CHLORIDE 0.9% 99 ML IV SCH (00:20)
[2022-05-08 00:35] LABS: Bilirubin,Urine NEG (Negative); Blood,Urine NEG (Negative); Color,Urine Straw (Yellow); Protein,Urine <15 mg/dL mg/dL (Negative); Urobilinogen,Urine < 2.0 mg/dL (<2.0)
[2022-05-08 00:45] LABS: Mucus,Urine FEW /HPF; RBC,Urine < 1.0 /HPF (0.0-6.0)
[2022-05-08] MEDS ORDERED: MORPHINE 2 MG/1 ML INJ IV PRN (00:59)
[2022-05-08] MEDS ORDERED: ALBUTEROL 2.5 MG/3 ML NEBU IH PRN (00:59)
[2022-05-08] MEDS ORDERED: ACETAMINOPHEN 325 MG TAB PO PRN (00:59)
[2022-05-08] MEDS ORDERED: MORPHINE 4 MG/1 ML INJ IV PRN (00:59)
[2022-05-08] MEDS ORDERED: DEXTROSE 50% IN WATER (25GM) 50 ML SYRINGE IV PRN (00:59)
[2022-05-08] MEDS ORDERED: ONDANSETRON 4 MG/2 ML INJ IV PRN (00:59)
[2022-05-08] MEDS ORDERED: INSULIN REGULAR, HUMAN 100 UNITS in SODIUM CHLORIDE 0.9% 99 ML IV SCH (01:00)
[2022-05-08] MEDS ORDERED: SODIUM CHLORIDE 0.45% 1000 ML 1,000 ML IV SCH (01:00)
--- NOTE | 2022-05-08 01:07 | History and Physical Report ---
History of Present Illness Date of examination: 05/08/22 Date of admission: 05/08/22 Chief complaint: Altered mental status Hyperglycemia History of present illness: 26-year-old female with history of diabetes was brought to the emergency room by EMS for altered mental status. She has history of insulin-dependent diabetes. She is visiting from out of town for a wedding and has been here for approximately 1 week. She apparently became altered at someone's house and EMS was called. Fingerstick read critical high. Greater than 600 during triage. In the emergency room patient is found to have blood glucose of 1056, bicarb 4, anion gap 70. BUN of 31 and creatinine 1.9.'s were going to admit the patient to the ICU we will put the patient on insulin drip, IV fluid. Will consult critical care evaluation Past History Past Medical History: diabetes Past Surgical History: No surgical history Social history: no significant social history Family history: diabetes Medications and Allergies Allergies Allergy/AdvReac Type Severity Reaction Status Date / Time amoxicillin Allergy Unknown Verified 04/25/22 11:53 Home Medications Medication Instructions Recorded Confirmed Last Taken Type Dicyclomine [Bentyl] 10 mg PO QID 04/27/22 04/27/22 Unknown History Insulin Degludec [Tresiba 200 unit SQ QDAY 04/27/22 04/27/22 Unknown History Flextouch U-200] Metoclopramide HCl [Metoclopramide 5 mg PO TIDWM 14 Days #42 tab 04/27/22 Unknown Rx HCl Odt] Active Meds: Active Medications Dextrose (Dextrose 50% In Water (25gm) 50 Ml Syringe) 0 ml IV Q30MIN PRN; Protocol PRN Reason: Hypoglycemia Insulin Human Regular 100 (units/ Sodium Chloride) 100 mls @ 1 mls/hr IV TITR ROSALVA; Protocol Last Admin: 05/08/22 00:20 Dose: 8 units/hr, 8 mls/hr Potassium Chloride/Dextrose/Sod Cl (D5w/0.45% Nacl/Kcl 20 Meq) 20 meq in 1,000 mls @ 125 mls/hr IV DIRECT ROSALVA Last Admin: 05/07/22 23:32 Dose: 125 mls/hr Review of Systems All systems: negative Constitutional: fatigue, malaise, lethargy, other (Altered mental status) Exam - Constitutional Vitals: Temp Pulse Resp BP Pulse Ox 24 L 24 115/69 98 05/07/22 22:32 05/07/22 22:32 05/07/22 22:32 05/07/22 22:32 General appearance: Present: no acute distress, well-nourished - EENT Eyes: Present: PERRL ENT: hearing intact, clear oral mucosa - Neck Neck: Present: supple, normal ROM - Respiratory Respiratory effort: normal Respiratory: bilateral: CTA - Cardiovascular Heart Sounds: Present: S1 & S2. Absent: rub, click - Extremities Extremities: pulses symmetrical, No edema Peripheral Pulses: within normal limits - Abdominal General gastrointestinal: Present: soft, non-tender, non-distended, normal bowel sounds Female genitourinary: Present: normal - Integumentary Integumentary: Present: clear, warm, dry - Musculoskeletal Musculoskeletal: gait normal, strength equal bilaterally - Psychiatric Psychiatric: other (Altered mental status) - Neurologic Neurologic: CNII-XII intact, moves all extremities Results - Labs CBC & Chem 7: 05/07/22 21:30 05/07/22 23:07 Labs: Laboratory Last Values WBC 21.6 K/mm3 (4.5-11.0) H 05/07/22 21:30 RBC 5.46 M/mm3 (3.65-5.03) H 05/07/22 21:30 Hgb 14.9 gm/dl (10.1-14.3) H 05/07/22 21:30 Hct 51.9 % (30.3-42.9) H 05/07/22 21:30 MCV 95 fl (79-97) 05/07/22 21:30 MCH 27 pg (28-32) L 05/07/22 21:30 MCHC 29 % (30-34) L 05/07/22 21:30 RDW 15.9 % (13.2-15.2) H 05/07/22 21:30 Plt Count 415 K/mm3 (140-440) 05/07/22 21:30 Seg Neutrophils % Loan Manager 05/07/22 21:30 Sodium 136 mmol/L (137-145) L 05/07/22 23:07 Potassium 4.3 mmol/L (3.6-5.0) 05/07/22 23:07 Chloride 73.0 mmol/L (98-107) L 05/07/22 23:07 Carbon Dioxide 3 mmol/L (22-30) L* 05/07/22 23:07 Anion Gap 64 mmol/L 05/07/22 23:07 BUN 31 mg/dL (7-17) H 05/07/22 23:07 Creatinine 1.7 mg/dL (0.6-1.2) H 05/07/22 23:07 Estimated GFR 45 ml/min 05/07/22 23:07 BUN/Creatinine Ratio 18 % 05/07/22 23:07 Glucose 928 mg/dL (65-100) H* 05/07/22 23:07 Calcium 8.5 mg/dL (8.4-10.2) D 05/07/22 23:07 Phosphorus 9.50 mg/dL (2.5-4.5) H 05/07/22 23:07 Magnesium 2.60 mg/dL (1.7-2.3) H 05/07/22 23:07 Total Bilirubin 0.30 mg/dL (0.1-1.2) 05/07/22 21:30 Direct Bilirubin < 0.2 mg/dL (0-0.2) 05/07/22 21:30 Indirect Bilirubin 0.1 mg/dL 05/07/22 21:30 AST 12 units/L (5-40) 05/07/22 21:30 ALT 16 units/L (7-56) 05/07/22 21:30 Alkaline Phosphatase 143 units/L (35-129) H 05/07/22 21:30 Total Protein 9.0 g/dL (6.3-8.2) H 05/07/22 21:30 Albumin 5.3 g/dL (3.9-5) H 05/07/22 21:30 Albumin/Globulin Ratio 1.4 % 05/07/22 21:30 HCG, Qual Negative (Negative) 05/07/22 21:30 Urine Color Straw (Yellow) 05/08/22 00:25 Urine Turbidity Clear (Clear) 05/08/22 00:25 Urine pH 5.0 (5.0-7.0) 05/08/22 00:25 Ur Specific [place] 1.020 (1.003-1.030) 05/08/22 00:25 Urine Protein <15 mg/dl mg/dL (Negative) 05/08/22 00:25 Urine Glucose (UA) >=500 mg/dL (Negative) 05/08/22 00:25 Urine Ketones 80 mg/dL (Negative) 05/08/22 00:25 Urine Blood Neg (Negative) 05/08/22 00:25 Urine Nitrite Neg (Negative) 05/08/22 00:25 Urine Bilirubin Neg (Negative) 05/08/22 00:25 Urine Urobilinogen < 2.0 mg/dL (<2.0) 05/08/22 00:25 Ur Leukocyte Esterase Neg (Negative) 05/08/22 00:25 Urine WBC (Auto) 1.0 /HPF (0.0-6.0) 05/08/22 00:25 Urine RBC (Auto) < 1.0 /HPF (0.0-6.0) 05/08/22 00:25 U Epithel Cells (Auto) 2.0 /HPF (0-13.0) 05/08/22 00:25 Urine Mucus Few /HPF 05/08/22 00:25 - Imaging and Cardiology Chest x-ray: report reviewed Assessment and Plan VTE prophylaxis?: Chemical Plan of care discussed with patient/family: Yes - Patient Problems (1) DKA (diabetic ketoacidosis) Status: Acute Plan to address problem: Admit the patient to the ICU. NPO. Half-normal saline at the rate of 150 cc/h. Insulin drip as per protocol. We do the serial BMP. Diabetic education. Will consult critical care evaluation (2) ELSY (acute kidney injury) Status: Acute Plan to address problem: Avoid nephrotoxic drug. Renally dose medication. Half-normal saline at the rate of 150 cc/h. Recheck BMP in the morning (3) Dehydration Status: Acute Plan to address problem: Half-normal saline at the rate of 150 cc/h. Recheck BMP in the morning (4) DVT prophylaxis Status: Acute Plan to address problem: Heparin 5000 units subcu every 12 hours for DVT prophylaxis. Pepcid 20 mg IV every 12 hours for GI prophylaxis. Patient is a full code
[2022-05-08 01:24] LABS: Calcium 8.1 mg/dL (8.4-10.2)
[2022-05-08] MEDS ORDERED: IPRATROPIUM/ALBUTEROL SULFATE 3 ML AMPUL.NEB IH SCH (02:00)
[2022-05-08 02:07] LABS: Basophils % (Manual) 0 % (0.0-1.8); Eosinophils % (Manual) 0 % (0.0-4.3); Total Cells Counted 100
[2022-05-08 02:08] LABS: Anisocytosis 1+; Large Platelets Few; Platelet Estimate Consistent w Auto
[2022-05-08 05:38] LABS: BUN/Creatinine Ratio 19; Blood Urea Nitrogen 23 mg/dL (7-17); Calcium 8.6 mg/dL (8.4-10.2); Hemolysis Index 123
[2022-05-08] MEDS ORDERED: SODIUM BICARB 8.4% 50 MEQ/50 ML SYRINGE IV ONE (06:11)
[2022-05-08] MEDS: D5W/0.45% NACL/KCL 20 MEQ 20 MEQ/1,000 ML BAG IV SCH (08:58)
--- NOTE | 2022-05-08 11:28 | Electrocardiograph Report ---
[facility] Test Date: 2022-05-07 Test Time: 21:33:10 Pat Name: ERIC JAIMES Department: Room: [place] [address] Gender: F Delivery Supervisor: YAZMIN : 1995 Requested By: STEPHANIE SOOD Order Number: [id number] Reading MD: Ernesto Hall Measurements Intervals [place] Rate: 131 P: 84 NC: 105 QRS: 80 QRSD: 78 T: 51 QT: 327 QTc: 484 Interpretive Statements Sinus tachycardia Borderline ST elevation, anterior leads Compared to ECG 04/25/2022 15:01:20 T wave abnormality no longer present Prolonged QT interval no longer present Electronically Signed On 05-08-2022 11:28:43 EDT by Ernesto Hall
[2022-05-08] MEDS: HEPARIN 5,000 UNIT/1 ML VIAL SUB-Q SCH ×2 (12:27→23:00)
[2022-05-08] MEDS: FAMOTIDINE 20 MG/2 ML INJ IV SCH ×2 (12:28→23:00)
[2022-05-08 14:32] LABS: BUN/Creatinine Ratio 20; Blood Urea Nitrogen 20 mg/dL (7-17); Calcium 8.9 mg/dL (8.4-10.2); Hemolysis Index 49
--- NOTE | 2022-05-08 14:48 | Event Note ---
Date: 05/08/22 Patient saw and evaluated for diabetic ketoacidosis. Last BMp demonstrates GAP: 24. Continue insulin gtt for glycemic control and rehydration with d5 1/2 NS with 20 MEQ K. Will monitor for GAP resolution. ELSY now resolved, Cr: 1.0. Assessment and Plan: (1) DKA (diabetic ketoacidosis) Status: Acute Plan to address problem: Admit the patient to the ICU. NPO. Half-normal saline at the rate of 150 cc/h. Insulin drip as per protocol. We do the serial BMP. Diabetic education. Will consult critical care evaluation (2) ELSY (acute kidney injury) Status: Acute Plan to address problem: Avoid nephrotoxic drug. Renally dose medication. Half-normal saline at the rate of 150 cc/h. Recheck BMP in the morning (3) Dehydration Status: Acute Plan to address problem: Half-normal saline at the rate of 150 cc/h. Recheck BMP in the morning (4) DVT prophylaxis Status: Acute Plan to address problem: Heparin 5000 units subcu every 12 hours for DVT prophylaxis. Pepcid 20 mg IV every 12 hours for GI prophylaxis. Patient is a full code The high probability of a clinically significant, sudden or life threatening deterioration of the [enodcrine, renal] system(s) required my full and direct attention, intervention and personal management. The aggregate critical care crissy e was [60] minutes. This time is in addition to time spent performing reported procedures but includes the following: [x] Data Review and interpretation [x] Patient assessment and monitoring of vital signs [x] Documentation [x] Medication orders and management
[2022-05-08 16:19] LABS: BUN/Creatinine Ratio 20; Blood Urea Nitrogen 20 mg/dL (7-17); Hemolysis Index 35
[2022-05-08 17:43] LABS: BUN/Creatinine Ratio 21; Blood Urea Nitrogen 19 mg/dL (7-17); Calcium 8.9 mg/dL (8.4-10.2); Hemolysis Index 22
[2022-05-08 22:57] LABS: BUN/Creatinine Ratio 21; Blood Urea Nitrogen 17 mg/dL (7-17); Calcium 9.3 mg/dL (8.4-10.2); Hemolysis Index 2
[2022-05-09] MEDS: INSULIN REGULAR, HUMAN 100 UNITS in SODIUM CHLORIDE 0.9% 99 ML IV SCH (01:30)
[2022-05-09] MEDS: D5W/0.45% NACL/KCL 20 MEQ 20 MEQ/1,000 ML BAG IV SCH (03:17)
[2022-05-09 05:09] LABS: Hematocrit 37.8 % (30.3-42.9); Hemoglobin 12.5 gm/dl (10.1-14.3); Mean Corpuscular HGB Conc 33 % (30-34); Mean Corpuscular Volume 83 fl (79-97); Platelet Count 289 K/mm3 (140-440); Red Blood Count 4.56 M/mm3 (3.65-5.03); Red Cell Distribution Width 14.3 % (13.2-15.2)
[2022-05-09 05:24] LABS: BUN/Creatinine Ratio 20; Blood Urea Nitrogen 16 mg/dL (7-17); Calcium 9.4 mg/dL (8.4-10.2); Hemolysis Index 6
[2022-05-09 07:17] LABS: Anisocytosis 1+; Band Neutrophils # (Manual) 0.1 K/mm3; Basophils % (Manual) 0 % (0.0-1.8); Eosinophils % (Manual) 0 % (0.0-4.3); Monocytes % (Manual) 1.5 % (0.0-7.3); Platelet Estimate Consistent w Auto; Total Cells Counted 200
[2022-05-09] MEDS ORDERED: LACTATED RINGERS 1,000 ML IV ONE (07:49)
[2022-05-09] MEDS: FAMOTIDINE 20 MG/2 ML INJ IV SCH (09:29)
[2022-05-09] MEDS: HEPARIN 5,000 UNIT/1 ML VIAL SUB-Q SCH (09:29)
[2022-05-09 11:20] LABS: Blood Urea Nitrogen 13 mg/dL (7-17); Calcium 8.9 mg/dL (8.4-10.2); Hemolysis Index 64
[2022-05-09 11:26] LABS: BUN/Creatinine Ratio 22
[2022-05-09] MEDS ORDERED: INSULIN GLARGINE 100 UNITS/ML SUB-Q SCH (12:05)
--- NOTE | 2022-05-09 14:19 | Discharge Summary ---
<JACKIE DEE - Last Filed: 05/10/22 19:14> Providers - Providers Date of Admission: 05/08/22 00:59 Date of discharge: 05/09/22 Attending physician: STEHPANIE SOOD MD 05/07/22 23:11 Consult to Physician [CONS] Routine Comment: Consulting Provider: FRANCO PADILLA Physician Instructions: Reason For Exam: DKA Primary care physician: PADILLA MASTERSON Hospitalization Condition: Stable Hospital course: This is a 26-year-old female with IDDM who presented to the emergency department for altered mental status via EMS on 05/08. Work-up in the emergency department revealed blood glucose of 1056, HCO3 4, anion gap 70, BUN/creatinine 1.9/ the patient was started on insulin drip. Patient was admitted to the hospitalist service with consults to [facility]. This morning patient has been transitioned to sliding scale insulin and long-acting insulin. Patient will be discharged home. She will need to follow-up with a primary care physician or psychology instructor for further diabetic medical management. Assessment and plan: : Acute kidney injury secondary to vasomotor nephropathy (resolved), hyponatremia (resolved), hypochloremia (resolved), high anion gap metabolic acidosis (resolved) -Admitted with the BUN/creatinine of 31/1.9 -This AM BUN/creatinine 13/0.6 -S/p 4 L IV fluids Endo: S/p DKA, h/o IDDM -Presented with a blood glucose of 1056, sodium 131, CO2 4, BUN/creatinine 1.9/31 with ketones in her urine -S/p insulin drip -Transition to sliding scale insulin and long-acting insulin -Blood glucose monitoring per PCP instructions -Continue Lantus -Follow-up with primary care physician -Hemoglobin A1c 12.5 Heme: Leukocytosis -Likely reactive -Follow with primary care physician Disposition: 01 HOME / SELF CARE / HOMELESS Final Discharge Diagnosis (Prints w/discharge instructions): Acute kidney injury secondary to vasomotor nephropathy (resolved), hyponatremia (resolved), hypochloremia (resolved), high anion gap metabolic acidosis (resolved), S/p DKA, h/o IDDM, Leukocytosis Time spent for discharge: 60 Core Measure Documentation - Palliative Care Palliative Care/ Comfort Measures: Not Applicable - Core Measures Any of the following diagnoses?: none Exam - Constitutional Vitals: Temp Pulse Resp BP Pulse Ox 98.4 F 85 16 136/95 100 05/09/22 12:00 05/09/22 13:00 05/09/22 13:00 05/09/22 13:00 05/09/22 13:00 General appearance: Present: no acute distress - EENT Eyes: Present: PERRL, EOM intact ENT: hearing intact, clear oral mucosa, dentition normal - Neck Neck: Present: supple, normal ROM - Respiratory Respiratory effort: normal Respiratory: bilateral: CTA - Cardiovascular Rhythm: regular Heart Sounds: Present: S1 & S2. Absent: systolic murmur, diastolic murmur - Extremities Extremities: no ischemia, pulses intact, pulses symmetrical, No edema, normal temperature, normal color, Full ROM Peripheral Pulses: within normal limits - Abdominal General gastrointestinal: Present: soft, non-tender, normal bowel sounds - Integumentary Integumentary: Present: clear, warm, dry - Musculoskeletal Musculoskeletal: strength equal bilaterally - Psychiatric Psychiatric: appropriate mood/affect, cooperative - Neurologic Neurologic: CNII-XII intact, no focal deficits, moves all extremities - Allied Health Allied health notes reviewed: nursing Plan Activity: advance as tolerated Diet: diabetic Additional Instructions: You are admitted with DKA and you will receive insulin IV therapy and now have been transitioned to sliding scale insulin and long- acting insulin. You will continue with sliding scale insulin and blood glucose monitoring per your primary care physician instructions. You will be discharged with Lantus. Follow-up with your primary care physician within 1 to 2 weeks of discharge. Present to your nearest emergency department or contact primary care physician if you experience worsening symptoms Follow up with: PADILLA MASTERSON MD [Primary Care Provider] - 7 Days Prescriptions: Syringe-Needle,Insulin,0.5 ml [Insulin Syringe/Needle 0.5 ML] 1 each MC QDAY #30 Insulin Glargine [Lantus VIAL] 35 units SUB-Q QAMDIAB #1 vial Other Discharge Orders: Glucometer (Amb) Location: None Selected Glucometer supplies[Amb] Location: None Selected <STEPHANIE SOOD - Last Filed: 05/12/22 14:47> Providers - Providers Date of Admission: 05/08/22 00:59 Attending physician: STEPHANIE SOOD MD 05/07/22 23:11 Consult to Physician [CONS] Routine Comment: Consulting Provider: FRANCO PADILLA Physician Instructions: Reason For Exam: DKA Primary care physician: PADILLA MASTERSON Hospitalization Hospital course: I saw and evaluated the patient. Discussed with the nurse practitioner and agree with their findings and plan as documented in this note. Exam - Constitutional Vitals: Temp Pulse Resp BP Pulse Ox 98.2 F 88 13 128/90 100 05/09/22 16:00 05/09/22 16:00 05/09/22 16:00 05/09/22 16:00 05/09/22 16:00
[2022-05-09 16:06] VITALS: BP 128/90
[2022-05-09] MEDS ORDERED: INSULIN LISPRO 100 UNIT/ML SUB-Q SCH (16:30)
[2022-05-10] MEDS ORDERED: INSULIN GLARGINE 100 UNITS/ML SUB-Q SCH (12:00)
== END 2022-05-09 17:30 | disposition home or self-care (01) | DRG 637 ==
LOC: ED 21:13 → CC1 05-08 00:59
PROVIDERS: ADMIT Hospitalist; ATTEND Internal Medicine
DX: E11.10 Type 2 diabetes mellitus with ketoacidosis without coma (principal); N17.0 Acute kidney failure with tubular necrosis; N17.9 Acute kidney failure, unspecified; E87.1 Hypo-osmolality and hyponatremia; E86.0 Dehydration; Z83.3 Family history of diabetes mellitus; E87.8 Other disorders of electrolyte and fluid balance, not elsewhere classified; D72.829 Elevated white blood cell count, unspecified
CPT/HCPCS: 36415; 71045; 80048; 80076; 81001; 82962; 83036; 83735; 84100; 84703; 85007; 85025; 93005; G0378; J3480; J3490; Q9967; J1644; J1815; J7030; J7120